=== PATIENT | female | born 1960 | race Hispanic/Latino ===

== ENCOUNTER 2017-05-18 11:22 | Day surgery (SDC) | payer BC, OTHER ==
[2017-05-17 13:16] VITALS: BP 134/66
[2017-05-17 13:21] LABS: BASOPHILS % (AUTO) 0.7 % (0.0-5.0); EOSINOPHILS % (AUTO) 0.9 % (0.0-8.0); HEMATOCRIT 44.7 % (36-48); LYMPHOCYTES % (AUTO) 41.4 % (21.0-51.0); MEAN CORPUSCULAR HEMOGLOBIN 28.9 pg (27.0-33.0); MEAN CORPUSCULAR HGB CONC 33.5 g/dL (32.0-36.0); MEAN CORPUSCULAR VOLUME 86.2 fL (79-99); PLATELET COUNT (AUTO) 276 K/uL (130-400); RED BLOOD CELL COUNT(AUTO) 5.18 MIL/uL (4.00-5.50); RED CELL DISTRIBUTION WIDTH 13.9 % (11.0-15.5); WHITE BLOOD COUNT (AUTO) 5.9 K/uL (4.8-10.8)
[~2017-05-18] VITALS: Ht 154.9 cm; Wt 61.7 kg
[2017-05-18] VITALS (16 sets, daily range): BP systolic 134–157; BP diastolic 74–84
[2017-05-18] MEDS ORDERED: LACTATED RINGERS 1000ML 1,000 ML IV ONE (11:51)
[2017-05-18] MEDS ORDERED: ASPI-555 PO (12:03)
[2017-05-18] MEDS ORDERED: PROPOFOL 10 MG/ML 20ML VIAL IV ONE ×2 (15:47→16:10)
[2017-05-18] MEDS ORDERED: MIDAZOLAM HCL 1 MG/ML 2ML VIAL ONE (15:47)
[2017-05-18] MEDS ORDERED: DEXAMETHASONE SOD PHOSPHATE 10MG/ML 1ML VIAL ONE (15:47)
[2017-05-18] MEDS ORDERED: LIDOCAINE PF 2% 5ML ABBOJECT ONE (15:47)
[2017-05-18] MEDS ORDERED: ONDANSETRON HCL 4 MG/2 ML VIAL ONE (15:47)
[2017-05-18] MEDS ORDERED: SUCCINYLCHOLINE 200MG/10ML SYR ONE (15:47)
[2017-05-18] MEDS ORDERED: ROCURONIUM BROMIDE 10MG/1ML 5ML VL ONE (15:47)
[2017-05-18] MEDS ORDERED: FENTANYL CITRATE PF 50 MCG/1 ML 2ML VIAL ONE (15:48)
[2017-05-18] MEDS ORDERED: ASPI-988 PO (17:14)
== END 2017-05-18 18:27 | disposition home or self-care (01) ==
LOC: DAH 11:22 → SUH 11:22
PROVIDERS: ATTEND Obstetrics & Gynecology
DX: N81.3 Complete uterovaginal prolapse (principal); G43.909 Migraine, unspecified, not intractable, without status migrainosus; Z98.890 Other specified postprocedural states; Z79.82 Long term (current) use of aspirin; Z98.51 Tubal ligation status
CPT/HCPCS: 36415; 58558; 85025; 88305; A4351; A4355; J0330; J1100; J2001; J2250; J2405; J2704 ×2; J3010; J3490; J7030; J7120

== ENCOUNTER 2020-08-04 14:49 | Emergency (ER) | payer BC ==
[~2020-08-04 14:49] MED LIST: ASPI-556 PO; ASPI-988 PO
[2020-08-04] MEDS ORDERED: SOLU-MEDROL 40MG VIAL ONE (17:38)
== END 2020-08-04 17:49 | disposition home or self-care (01) ==
LOC: EDH 14:49
DX: S83.421A Sprain of lateral collateral ligament of right knee, initial encounter (principal); M13.861 Other specified arthritis, right knee; X58.XXXA Exposure to other specified factors, initial encounter; Y93.89 Activity, other specified; Y92.89 Other specified places as the place of occurrence of the external cause; Y99.8 Other external cause status
CPT/HCPCS: 73562; 96372; 99284; J2920

== ENCOUNTER → 2022-07-09 | Outpatient (CLI) | payer BC ==
[~2022-07-09] MED LIST changes: +ACET-2079 PO; +ACET-2743 PO; -ASPI-556 PO; -ASPI-988 PO; +CEPH500C2 PO; +ROSU5TAB PO
== END | disposition home or self-care (01) ==
LOC: RAH 10:03
PROVIDERS: ATTEND Internal Medicine
DX: S83.242A Other tear of medial meniscus, current injury, left knee, initial encounter (principal); M25.40 Effusion, unspecified joint; M25.562 Pain in left knee; X58.XXXA Exposure to other specified factors, initial encounter; Y93.89 Activity, other specified; Y92.89 Other specified places as the place of occurrence of the external cause; Y99.8 Other external cause status
CPT/HCPCS: 73721

== ENCOUNTER 2022-12-09 13:36 | Emergency (ER) | payer OTHER, BC ==
[~2022-12-09] VITALS: Ht 157.5 cm; Wt 56.7 kg
[2022-12-09] MEDS ORDERED: 0.9% NACL 250ML 250 ML IV ONE (15:30)
[2022-12-09] MEDS ORDERED: ONDANSETRON 4MG INJ IVP ONE (15:30)
[2022-12-09] MEDS ORDERED: FAMOTIDINE 20MG VIAL IV ONE (15:30)
[2022-12-09] MEDS ORDERED: MORPHINE 2 MG SYG IVP ONE ×2 (15:30→18:00)
[2022-12-09 16:06] LABS: BASOPHILS % (AUTO) 0.3 % (0.0-5.0); EOSINOPHILS % (AUTO) 0.1 % (0.0-8.0); HEMATOCRIT 42.5 % (36-48); LYMPHOCYTES % (AUTO) 8.4 % (21.0-51.0); MEAN CORPUSCULAR HEMOGLOBIN 28.9 pg (27.0-33.0); MEAN CORPUSCULAR HGB CONC 32.9 g/dL (32.0-36.0); MEAN CORPUSCULAR VOLUME 87.6 fL (79-99); MONOCYTES % (AUTO) 2.7 % (3.0-13.0); NEUTROPHILS % (AUTO) 87.8 % (40.0-77.0); PLATELET COUNT (AUTO) 229 K/uL (130-400); RED BLOOD CELL COUNT(AUTO) 4.85 MIL/uL (4.00-5.50); RED CELL DISTRIBUTION WIDTH 13.1 % (11.0-15.5); WHITE BLOOD COUNT (AUTO) 14.6 K/uL (4.8-10.8)
[2022-12-09 16:15] LABS: CREATININE 0.9 mg/dL (0.5-1.5)
[2022-12-09 16:20] LABS: ALBUMIN 3.9 g/dL (3.5-5.0); TOTAL PROTEIN, SERUM 6.9 g/dL (6.0-8.3)
[2022-12-09] MEDS ORDERED: IOHEXOL-350 75 ML VIAL IV ONE (16:56)
[2022-12-09] MEDS ORDERED: POTASSIUM BICARB/CIT AC 25 MEQ TABLET.EFF PO ONE (18:30)
[2022-12-09 18:39] LABS: APPEARANCE,URINE CLEAR (CLEAR); BILIRUBIN,URINE NEGATIVE (NEGATIVE); COLOR,URINE COLORLESS (YELLOW); GLUCOSE, URINE (UA) NEGATIVE (NEGATIVE); KETONES,URINE 10 mg/dL (NEGATIVE); LEUKOCYTE ESTERASE ,URINE 250 Leu/uL (NEGATIVE); NITRATE,URINE 1+ (NEGATIVE); OCCULT BLOOD,URINE NEGATIVE (NEGATIVE); PH,URINE 6.5 (5.0-8.0); PROTEIN,URINE NEGATIVE (NEGATIVE); UROBILINOGEN,URINE 0.2 mg/dL (0.2-1.0)
[2022-12-09 18:57] LABS: BACTERIA,URINE FEW /HPF (None Seen); MUCUS,URINE RARE LPF (None Seen); SQUAMOUS EPITHELIAL CELL,UR RARE /HPF (0-2)
[2022-12-09] MEDS ORDERED: IBUP-2070 PO (19:41)
[2022-12-09] MEDS ORDERED: NITR100C PO (19:41)
[2022-12-09] MEDS ORDERED: CYCL10TA16 PO (19:41)
[2022-12-09 20:00] VITALS: BP 138/82; PULSE 82; RESP 16
== END 2022-12-09 20:07 | disposition home or self-care (01) ==
LOC: EDH 13:36
DX: R78.9 Finding of unspecified substance, not normally found in blood (principal); R07.89 Other chest pain; N39.0 Urinary tract infection, site not specified; E78.00 Pure hypercholesterolemia, unspecified; M25.562 Pain in left knee; M54.50 Low back pain, unspecified; Z79.899 Other long term (current) drug therapy; V89.2XXA Person injured in unspecified motor-vehicle accident, traffic, initial encounter; Y93.I9 Activity, other involving external motion; Y92.488 Other paved roadways as the place of occurrence of the external cause; Y99.8 Other external cause status
CPT/HCPCS: 99285; 70450; 96374; 96375; 96361; 82550; 84484; 80053; 83690; 85025; 87077; 87088; 87186; 81001; 36415; 72125; 71260; 74177; 93005; 96376; J3490; J2270 ×2; J2405; Q9967; J7050

== ENCOUNTER 2023-05-10 05:57 | Day surgery (SDC) | payer BC ==
[2023-05-09 10:11] LABS: BASOPHILS # (AUTO) 0.03 K/uL (0.00-0.20); BASOPHILS % (AUTO) 0.4 % (0.0-5.0); EOSINOPHILS # (AUTO) 0.01 K/uL (0.00-0.70); EOSINOPHILS % (AUTO) 0.1 % (0.0-8.0); HEMATOCRIT 44.6 % (36-48); IMMATURE GRANULOCYTE ABSOLUTE 0.03 K/uL (0-1); LYMPHOCYTES # (AUTO) 2.5 K/uL (1.0-4.8); LYMPHOCYTES % (AUTO) 29.7 % (21.0-51.0); MEAN CORPUSCULAR HEMOGLOBIN 28.8 pg (27.0-33.0); MEAN CORPUSCULAR VOLUME 87.5 fL (79-99); MONOCYTES # (AUTO) 0.3 K/uL (0.1-1.0); MONOCYTES % (AUTO) 3.3 % (3.0-13.0); NEUTROPHILS # (AUTO) 5.6 K/uL (1.8-7.7); NEUTROPHILS % (AUTO) 66.1 % (40.0-77.0); PLATELET COUNT (AUTO) 296 K/uL (130-400); RED CELL DISTRIBUTION WIDTH 13.1 % (11.0-15.5); WHITE BLOOD COUNT (AUTO) 8.4 K/uL (4.8-10.8)
[2023-05-09 10:12] VITALS: BP 169/81; PULSE 65; RESP 18
[2023-05-09 10:25] LABS: CREATININE 0.9 mg/dL (0.5-1.5); INR < 0.93 (0.85-1.15); POTASSIUM 4.2 mmol/L (3.5-5.1); PROTHROMBIN TIME 10.8 SEC (9.6-11.6)
[2023-05-10] VITALS (16 sets, daily range): BP systolic 122–150; BP diastolic 69–78; PULSE 57–73; RESP 12–19
[~2023-05-10] VITALS: Ht 154.9 cm; Wt 58.1 kg
[2023-05-10] MEDS ORDERED: CEFAZOLIN SODIUM 2 GM VIAL ONE (06:36)
[2023-05-10] MEDS ORDERED: LACTATED RINGERS 1000ML 1,000 ML IV ONE (06:36)
[2023-05-10] MEDS ORDERED: ONDANSETRON 4MG INJ ONE (06:51)
[2023-05-10] MEDS ORDERED: DEXAMETHASONE SOD PHOSPHATE 10MG/ML 1ML VIAL ONE (06:51)
[2023-05-10] MEDS ORDERED: SUCCINYLCHOLINE CHLORIDE 20 MG/ML 10 ML VIAL ONE (06:51)
[2023-05-10] MEDS ORDERED: LIDOCAINE PF 100MG/5ML (2%) SYRINGE 5ML ONE (06:51)
[2023-05-10] MEDS ORDERED: PROPOFOL 10 MG/ML 20ML VIAL IV ONE (06:52)
[2023-05-10] MEDS ORDERED: MIDAZOLAM HCL 1 MG/ML 2ML VIAL ONE (06:52)
[2023-05-10] MEDS ORDERED: NEOSTIGMINE 5MG/5ML SYR IV ONE (06:52)
[2023-05-10] MEDS ORDERED: FENTANYL CITRATE PF 50 MCG/1 ML 2ML VIAL ONE (06:52)
[2023-05-10] MEDS ORDERED: GLYCOPYRROLATE 1 MG/5 ML SYRINGE ONE (06:52)
[2023-05-10] MEDS ORDERED: ROCURONIUM 10MG/1ML SYR 10 MG/ML ML ONE (06:53)
[2023-05-10] MEDS ORDERED: BUPIVACAINE/PF 0.5% 30ML VIAL ONE (08:02)
[2023-05-10] MEDS ORDERED: HEPARIN 5,000 UNIT VIAL IRRIG ONE (08:14)
[2023-05-10] MEDS ORDERED: BUPIVACAINE/PF 0.5% 30ML VIAL INJ ONE (08:14)
[2023-05-10] MEDS ORDERED: ACET-2079 PO (08:34)
[2023-05-10] MEDS ORDERED: DOCU-116 PO (08:34)
== END 2023-05-10 10:30 | disposition home or self-care (01) ==
LOC: DAH 05:57
PROVIDERS: ATTEND Surgery
DX: C50.412 Malignant neoplasm of upper-outer quadrant of left female breast (principal); M81.0 Age-related osteoporosis without current pathological fracture; N18.2 Chronic kidney disease, stage 2 (mild); E55.9 Vitamin D deficiency, unspecified; E04.1 Nontoxic single thyroid nodule; E78.2 Mixed hyperlipidemia; M15.9 Polyosteoarthritis, unspecified; Z79.899 Other long term (current) drug therapy; Z79.01 Long term (current) use of anticoagulants; Z98.890 Other specified postprocedural states; Z80.0 Family history of malignant neoplasm of digestive organs
CPT/HCPCS: 80048; 85025; 85610; 36415; 93005; 36561; 77001; 71045; A6260; A4663; A4606; C1788; J7120; J3010; J3490; J1100; J2710; J0330; J2001; J2250; J2704; J2405; J1644 ×2; J0665 ×2; J0690; A4930; A4215; A4223; A4222; A4221; A4600; 77002; G0168